=== PATIENT | female | born 1975 | race American Indian/Alaskan Native ===

== ENCOUNTER 2018-06-12 22:30 | Emergency (ER) | payer OTHER ==
--- NOTE | 2018-06-13 00:21 | C.PDOC ---
History Of Present Illness 43-year-old female presents to the ED for evaluation of right hip pain which began one month ago but has worsened over the past week. 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 Patient took [id number] medication without relief. She denies extremity numbness/ weakness or direct trauma/injury to the site. Time Seen by Provider: 06/12/18 23:02 Chief Complaint (Nursing): Hip Pain History Per: Patient History/Exam Limitations: no limitations Onset/Duration Of Symptoms: Other (one month, ) Current Symptoms Are (Timing): Worse Additional History Per: Patient - Hip Description Of Injury: denies: Fell, Tripped, Lost Balance Past Medical History Reviewed: Historical Data, Nursing Documentation, Vital Signs Vital Signs: Last Vital Signs Temp 98.2 F 06/13/18 00:22 Pulse 75 06/13/18 00:22 Resp 20 06/13/18 00:22 BP 97/62 L 06/13/18 00:22 Pulse Ox 99 06/13/18 01:33 - Medical History PMH: No Chronic Diseases Surgical History: Cholecystectomy Family History: States: Unknown Family Hx - Social History Hx Alcohol Use: No Hx Substance Use: No Review Of Systems Musculoskeletal: Positive for: Other (right hip pain ) Neurological: Negative for: Weakness, Numbness Physical Exam - Physical Exam Appears: Non-toxic, No Acute Distress Skin: Normal Color, Warm, Dry Head: Atraumatic, Normacephalic Eye(s): bilateral: Normal Inspection Oral Mucosa: Moist Neck: Supple Chest: Symmetrical, No Deformity, No Tenderness Back: Other (mild tenderness to right paralumbar and right gluteal area ) Extremity: Normal ROM, No Tenderness, Capillary Refill (less than 2 seconds ), No Deformity, No Swelling Neurological/Psych: Oriented x3, Normal Speech, Normal Cognition Gait: Steady ED Course And Treatment O2 Sat by Pulse Oximetry: 99 (on RA) Pulse Ox Interpretation: Normal Progress Note: LS Spine AP/LAT ordered and reviewed. Motrin PO given. On re- examination, patient is resting comfortably, showing no signs of distress reports an improvement in her symptoms. Patient is stable for discharge and is advised to follow up with her PMD within 1-2 days for further evaluation and/or return to the ED if symptoms persist or worsen. Disposition Counseled Patient/Family Regarding: Diagnosis, Need For Followup - Disposition Referrals: [facility] [Outside] Disposition: HOME/ ROUTINE Disposition Time: 00:19 Condition: STABLE Additional Instructions: Please follow up with PMD Take meds as directed Return to ER if worse Prescriptions: Cyclobenzaprine [Cyclobenzaprine HCl] 10 mg PO HS #10 tab Ibuprofen [Motrin] 600 mg PO Q6H #20 tab Instructions: Sciatica (DC) Forms: [employer] (Chinese), Work Excuse - Clinical Impression Clinical Impression: Sciatica - PA / [employer] / Resident Statement MD/DO has reviewed & agrees with the documentation as recorded. - Scribe Statement The provider has reviewed the documentation as recorded by the Scribe (Eve Johnston) All medical record entries made by the Scribe were at my direction and personally dictated by me. I have reviewed the chart and agree that the record accurately reflects my personal performance of the history, physical exam, medical decision making, and the department course for this patient. I have also personally directed, reviewed, and agree with the discharge instructions and disposition.
[2018-06-13 00:23] VITALS: BP 97/62; PULSE 75; RESP 20; TEMP 98.2; O2SAT 99
--- NOTE | 2018-06-13 10:38 | RAD ---
Date of service: 06/12/2018 PROCEDURE: Radiographs of the Lumbar Spine. HISTORY: pain, low back COMPARISON: No prior. FINDINGS: BONES: Normal alignment. No listhesis. No fracture. DISC SPACES: Unremarkable. OTHER FINDINGS: None. IMPRESSION: Unremarkable radiographs of the lumbar spine.
== END 2018-06-13 00:37 | disposition home or self-care (01) ==
LOC: C.ER 22:30
DX: M54.30 Sciatica, unspecified side (principal)